=== PATIENT | male | born 1945 | race Caucasian/White ===

== ENCOUNTER 2016-05-03 04:54 | Inpatient (IN) | payer MEDICARE ==
--- NOTE | ~2016-05-03 | CR72 ---
[facility] A Service of [facility] & [facility] RADIOLOGY TEXT RESULTS PATIENT: RONNIE JIANG LOCATION: [facility] 550- : 47 UNIT #: [id number] AGE: [address]: Gerardo Gupta MD SEX: M ORDER DR: [id number] [place] [address] [id number] E MR#: [id number] Acc #: [id number] NAME: RONNIE JIANG : 1945 SEX: M STUDY DATE/TIME: 05/03/2016 5:00 UNIT: SED ROOM: STUDY DESCRIPTION: CR Chest Single View Portable Attending Physician: Jaspal Bhakta M.D. Ordering Physician: Jaspal Bhakta M.D. Primary Care Physician: Lindsey Watt A.P.R.N. MEDICAL IMAGING REPORT This report is preliminary unless electronic signature is present. EXAM Portable chest 05/03/2016 at 05:06 hours. INDICATIONS Shortness of air started today. History of COPD. TECHNIQUE AP portable chest. COMPARISON Compared with 12/23/2013. FINDINGS Cardiac and mediastinal contours are normal. The lungs are emphysematous but clear except for some chronic left base scarring. No pneumothorax. IMPRESSION Emphysema with chronic scarring at the left base. No active disease. Dictated by... Emigdio Mccarthy Jr., M.D. THIS IS AN ELECTRONICALLY VERIFIED REPORT Emigdio Mccarthy Jr., M.D. at 05/06/2016 7:21 AM RLK/rene TD: 05/03/2016 08:47 JOB #: [id number] MEDICAL IMAGING REPORT
--- NOTE | ~2016-05-03 | CR72 ---
[facility] A Service of [facility] & [facility] RADIOLOGY TEXT RESULTS PATIENT: RONNIE JIANG LOCATION: [facility] 550-01 : 47 UNIT #: [id number] AGE: [address]: Gerardo Gupta MD SEX: M ORDER DR: [id number] [facility] [address] [facility]. [place], [place] [address] [id number] I MR#: [id number] Acc #: [id number] NAME: RONNIE JIANG : 1945 SEX: M STUDY DATE/TIME: 05/03/2016 11:41 UNIT: [facility] ROOM: [facility] STUDY DESCRIPTION: CR Chest Single View Portable Attending Physician: Max Gupta M.D. Ordering Physician: Max Gupta M.D. Primary Care Physician: Rita DelgadilloRIsmael MEDICAL IMAGING REPORT This report is preliminary unless electronic signature is present EXAM Chest portable, 05/03/2016 11:41 hours HISTORY 71-year-old with chronic shortness of air worsening this morning. History of stage 4 COPD. COMPARISON 05/03/2016 at 05:06 hours FINDINGS 2 upright portable films were performed to include all of the lungs. The cardiac, mediastinal and hilar contours are normal. Lungs are hyperinflated with underlying emphysematous change and blebs and bullae in the right upper lobe greater than left. There is no acute pulmonary density or pleural effusion. IMPRESSION Diffuse emphysematous changes particularly in the right upper lobe greater than left upper lobe. There is no evidence of pneumonia, edema, effusion. Dictated by... Jacquelyn Borges M.D. THIS IS AN ELECTRONICALLY VERIFIED REPORT Jacquelyn Borges M.D. at 05/03/2016 2:30 PM Jero TD: 05/03/2016 14:23 JOB #: [id number] MEDICAL IMAGING REPORT COPY
--- NOTE | ~2016-05-03 | EKG ---
PATIENT: RONNIE JIANG UNIT #: [id number] Ventricular Rate: 71 BPM Atrial Rate: 71 BPM P-R Interval: 100 ms QRS Duration: 80 ms Q-T Interval: 368 ms QTC Calculation(Bezet): 399 ms P [place]: 85 degrees Calculated R [place]: 75 degrees Calculated T [place]: 66 degrees Diagnosis Line: Sinus rhythm with short MI Diagnosis Line: Otherwise normal ECG Diagnosis Line: When compared with ECG of 04-MAY-2016 19:34, Diagnosis Line: (unconfirmed) Diagnosis Line: Sinus rhythm has replaced Atrial flutter Diagnosis Line: Vent. rate has decreased BY 91 BPM Diagnosis Line: Non-specific change in ST segment in Inferior Diagnosis Line: leads Diagnosis Line: ST no longer depressed in Anterolateral leads Diagnosis Line: Confirmed by ALANNA TRUJILLO MD ([id number]) on Diagnosis Line: 05/05/2016 10:51:49 PM INTERPRETING MD: TERESA
--- NOTE | ~2016-05-03 | CO ---
Unit #: [id number] #: [id number] Patient: RONNIE JIANG [id number] [address] [place], [place] [address] [id number] I MR#: [id number] NAME: RONNIE JIANG ROOM: 550 Age: 71 Sex: M Admission Date: 05/03/2016 : 1945 Attending Physician: Max Gupta M.D. Primary Care Physician: Lindsey Watt A.P.R.N. CONSULTATION REPORT HISTORY OF PRESENT ILLNESS This is a 71-year-old white male who is known to have severe COPD and is on home oxygen. He is admitted with COPD exacerbation. He states he was diagnosed with pneumonia 2 weeks ago and was started on antibiotics and steroids. His dyspnea has progressively worsened. He came to the emergency room for evaluation where he was started on steroids and IV antibiotics. During the course of his stay, the patient developed atrial fibrillation with rapid ventricular response with a rate up to 176 beats per minute. The patient was unaware of palpitations. He had no symptoms of angina. He remains dyspneic that is worse than normal. He has been seen in the past by Dr. Nuñez at [facility], where he has been told to have atrial fibrillation in the past. He was treated with beta-domenico. He has not been on anticoagulation. PAST MEDICAL HISTORY 1. COPD, on home oxygen. 2. Paroxysmal atrial fibrillation, not on anticoagulation. 3. Active smoker. PAST SURGICAL HISTORY Vagotomy. SOCIAL HISTORY The patient is . He smoked up to 5 cigarettes prior to his admission, but previously smoked 1 to 1-1/2 packs of cigarettes a day. He denies illicit drug or alcohol use. FAMILY HISTORY Negative for coronary artery disease. ALLERGIES Codeine. HOME MEDICATIONS ProAir q.2 hours p.r.n., Symbicort 160/4.5 mcg 2 puffs b.i.d., and Spiriva 1 inhalation daily. According to the patient, he is taking metoprolol. REVIEW OF SYSTEMS CONSTITUTIONAL: Negative for fever or chills. Reports no weight gain or weight loss. HEENT: No headache, hearing or vision changes, or difficulty with swallowing. No dizziness. CARDIOVASCULAR: Has no symptoms of angina. Unaware of palpitations. No Unit #: [id number] #: [id number] Patient: RONNIE JIANG paroxysmal nocturnal dyspnea or orthopnea. Denies syncope or near syncope. RESPIRATORY: Positive for dyspnea at rest that is worse on minimal exertion. Has a nonproductive cough. No hemoptysis. GASTROINTESTINAL: No abdominal pain, nausea, or vomiting. No constipation or melena. EXTREMITIES: Negative for lower extremity edema. PHYSICAL EXAMINATION VITAL SIGNS: Blood pressure 144/89, heart rate 68, temperature 97.8, BMI 21. GENERAL: This is a thin, frail 71-year-old middle-aged white male, who is in mild respiratory distress. NEUROLOGIC: He is awake, alert, and oriented without focal weaknesses. NECK: Trachea is midline. No thyromegaly or lymphadenopathy. No jugular venous distention. HEART: S1 and S2. Heart sounds are normal. No murmurs. No rubs or clicks. Irregularly irregular rhythm. LUNGS: Diminished breath sounds with scattered expiratory wheezes. ABDOMEN: Soft and nontender with bowel sounds present. No hepatomegaly. EXTREMITIES: Without leg edema. SKIN: Warm and dry. DIAGNOSTIC STUDIES LABORATORY RESULTS: Glucose 146, BUN 12, creatinine 1.0, sodium 139, and potassium 4.8. BNP 37. White count 7.1, hemoglobin 16.8, hematocrit 48.9, and platelet count 149. IMAGING STUDIES: Chest x-ray shows diffuse emphysematous changes. CT of the chest shows severe pulmonary emphysema with diffuse lungs bilaterally. CARDIOVASCULAR STUDIES: EKG shows atrial fibrillation with rapid ventricular response, rate of 176 beats per minute. IMPRESSION 1. Severe chronic obstructive pulmonary disease exacerbation. 2. Acute on chronic respiratory failure secondary to chronic obstructive pulmonary disease. 3. New-onset atrial fibrillation with rapid ventricular response secondary to severe chronic obstructive pulmonary disease. PLAN 1. Cardiology was consulted for atrial fibrillation with rapid ventricular response. The patient has been started on IV amiodarone. We would add IV metoprolol for rate control. 2. Anticoagulate with Lovenox. 3. The patient has a CHADS2 score of less than 1. 4. Obtain 2D echocardiogram to evaluate left ventricular systolic function. 5. Follow up with Dr. Nuñez at discharge. Thank you for allowing us to assist in this patient's care. Dictated by... Rita GarciaRCuong. for Wayne Aguillon/cierral Unit #: [id number] #: [id number] Patient: RONNIE JIANG TD: 05/04/2016 19:11 JOB #: [id number] CC: Nick Nuñez M.D. [facility] CONSULTATION REPORT X Vineet Alfonso APRN CONSULTATION REPORT
--- NOTE | ~2016-05-03 | DS ---
Unit #: [id number] #: [id number] Patient: RONNIE JIANG [id number] [place] [address] [facility]. [place], [place] [address] [id number] I MR#: [id number] NAME: RONNIE JIANG. ROOM: 550 Age: 71 Sex: M Admission Date: 05/03/2016 : 1945 Discharge Date: 05/07/2016 Attending Physician: Max Gupta M.D. Primary Care Physician: Lindsey Watt A.P.R.N. DISCHARGE SUMMARY CONSULTANTS Dr. Carreno - Cardiology. REASON FOR ADMISSION CHF exacerbation and COPD exacerbation. This is a pleasant gentleman who has suspected pneumonia based on chest x-ray in our office approximately two days ago with five days of (1) and Medrol Dosepak. Patient did not feel better, continued to have significant shortness of air. Eventually progressed over the past few days so badly the patient presented to the emergency room for workup. He was having significant chest tightness, fatigue, cough productive of yellowish sputum. No fevers, no chills, no nausea, no vomiting, no diarrhea and no abdominal pain. The patient has a long history of COPD and has no sick contacts. CT of the chest without contrast showed emphysema with no active disease in the chest. Cardiology was called to see regarding atrial fibrillation with rapid ventricular response. The patient was started on IV amiodarone and started on IV metoprolol. The patient was anticoagulated with Lovenox. 2D echo was performed to evaluate left ventricular systolic function. The patient was placed on metoprolol. The patient is going to follow up with Dr. Nuñez on discharge. The patient was found to be flu positive, placed on Tamiflu. He was on Omnicef and azithromycin. Azithromycin was discontinued after three days. The Omnicef was changed to oral and then patient was discharged after five days of antibiotics to continue oral for a total of eight days. The patient is also being discharged on metoprolol and two more days of Tamiflu. He is requiring 3 L of oxygen. He should follow up with Dr. Vargas in approximately two weeks. DISCHARGE MEDICATIONS 1. Ventolin two puffs every four hours as needed. 2. Symbicort 160/4.5, two puffs twice a day. 3. Amiodarone 200 mg daily. 4. Prednisone 80 mg x1 days, 60 mg x1 day, 50 mg x1 day, 40 mg x1 day, 30 mg x1 day, 20 mg x1 day, 10 mg x1 day, total of 29 tablets. 5. Spiriva, one capsule inhaled daily. 6. Lovenox 60 mg subcu b.i.d. This may be changed by cardiology prior to discharge. 7. Metoprolol 25 mg daily, extended relief. 8. Omnicef 300 mg b.i.d. x2 days. 9. Tamiflu 75 mg b.i.d. x2 days. Unit #: [id number] #: [id number] Patient: RONNIE JIANG The patient is to follow up with Dr. Nuñez within two weeks. He is to follow up with Dr. Vargas within two weeks. Oxygen at 3 L nasal cannula. Dictated by... Wayne Ramos/harpal TD: 05/10/2016 07:49 JOB #: [id number] DISCHARGE SUMMARY X Gerardo Gupta MD X DISCHARGE SUMMARY
--- NOTE | ~2016-05-03 | EKG ---
PATIENT: RONNIE JIANG UNIT #: [id number] Ventricular Rate: 162 BPM Atrial Rate: 333 BPM QRS Duration: 76 ms Q-T Interval: 272 ms QTC Calculation(Bezet): 446 ms Calculated R [place]: 74 degrees Calculated T [place]: -4 degrees Diagnosis Line: Atrial flutter with variable A-V block Diagnosis Line: Nonspecific ST abnormality Diagnosis Line: Abnormal QRS-T angle, consider primary T wave Diagnosis Line: abnormality Diagnosis Line: Abnormal ECG Diagnosis Line: When compared with ECG of 04-MAY-2016 13:24, Diagnosis Line: (unconfirmed) Diagnosis Line: ST no longer depressed in Inferior leads Diagnosis Line: ST less depressed in Anterolateral leads Diagnosis Line: T wave inversion no longer evident in Inferior Diagnosis Line: leads Diagnosis Line: Nonspecific T wave abnormality no longer evident Diagnosis Line: in Lateral leads Diagnosis Line: Confirmed by ALANNA TRUJILLO MD ([id number]) on Diagnosis Line: 05/05/2016 10:48:38 PM INTERPRETING MD: TERESA
--- NOTE | ~2016-05-03 | EKG ---
PATIENT: RONNIE JIANG UNIT #: [id number] Ventricular Rate: 68 BPM Atrial Rate: 68 BPM P-R Interval: 120 ms QRS Duration: 80 ms Q-T Interval: 392 ms QTC Calculation(Bezet): 416 ms P [place]: 82 degrees Calculated R [place]: 76 degrees Calculated T [place]: 18 degrees Diagnosis Line: Normal sinus rhythm Diagnosis Line: Normal ECG Diagnosis Line: When compared with ECG of 04-MAY-2016 21:58, Diagnosis Line: No significant change was found Diagnosis Line: Confirmed by ALANNA TRUJILLO MD ([id number]) on Diagnosis Line: 05/07/2016 11:46:56 AM INTERPRETING : TERESA
--- NOTE | ~2016-05-03 | HP ---
Unit #: [id number] #: [id number] Patient: RONNIE JIANG [id number] [place] [address] [facility]. [place], [place] [address] [id number] I MR#: [id number] NAME: RONNIE JIANG ROOM: 550 Age: 71 Sex: M Admission Date: 05/03/2016 : 1945 Attending Physician: Max Gupta M.D. Primary Care Physician: Lindsey Watt A.P.R.N. HISTORY AND PHYSICAL HISTORY OF PRESENT ILLNESS This is a pleasant gentleman who was treated for what was suspected to be pneumonia based on chest x-ray in our office approximately two weeks ago with five days of levofloxacin as well as a Medrol Dosepak. Patient did not feel better and continued to have significant shortness of air. Eventually, it progressed over the past few days so badly that patient had to present to the emergency room for workup. He is having significant chest tightness, fatigue, cough productive of various whitish-yellow sputum; but no fevers, no chills, no nausea, no vomiting, no diarrhea, and no abdominal pain. The patient has COPD and has (1) . REVIEW OF SYSTEMS Negative, except as per the history of present illness. PAST MEDICAL HISTORY Significant for COPD, ventral hernia, and home oxygen 2 liters at night. PAST SURGICAL HISTORY Noncontributory. SOCIAL HISTORY Patient is a recent smoker. No alcohol. No polysubstance use. FAMILY HISTORY Noncontributory. PHYSICAL EXAMINATION VITAL SIGNS: T. current 97.9, pulse 86, respiratory rate 20, blood pressure 133/68, and satting 94% on 2 liters nasal cannula. HEENT: Extraocular movements are intact. Head is normocephalic and atraumatic. NECK: Shows no accessory muscle use. CHEST: Shows decreased breath sounds bilaterally. CARDIOVASCULAR: Regular rate. No gallop. ABDOMEN: Soft, nontender, and nondistended. EXTREMITIES: Show no evidence of edema. ASSESSMENT AND PLAN 1. COPD exacerbation. Patient is on steroids. He is on antibiotics. We are going to try to get a sputum culture and a viral respiratory panel, MRSA swab, and we hopefully will have a course and be able to deescalate antibiotics to oral here rather shortly. We are continuing steroids as patient still has wheezes on physical examination. This is likely a COPD exacerbation. Unit #: [id number] #: [id number] Patient: RONNIE JIANG 2. Weight loss. Patient states he has had 6 pounds of weight loss as well as significant weakness. Chest x-ray does not show any evidence of disease. We will get a CT chest to evaluate state of the COPD if none is done recently. Dictated by Wayne Ramos TD: 05/04/2016 06:07 JOB #: [id number] HISTORY AND PHYSICAL X Gerardo Gupta MD X HISTORY AND PHYSICAL
--- NOTE | ~2016-05-03 | EKG ---
PATIENT: RONNIE JIANG UNIT #: [id number] Ventricular Rate: 101 BPM Atrial Rate: 101 BPM P-R Interval: 122 ms QRS Duration: 80 ms Q-T Interval: 312 ms QTC Calculation(Bezet): 404 ms P [place]: 85 degrees Calculated R [place]: 76 degrees Calculated T [place]: 63 degrees Diagnosis Line: Sinus tachycardia Diagnosis Line: Biatrial enlargement Diagnosis Line: Abnormal ECG Diagnosis Line: When compared with ECG of 23-DEC-2013 07:44, Diagnosis Line: No significant change was found Diagnosis Line: Confirmed by ANASTASIA SANTIAGO MD ([id number]) on Diagnosis Line: 05/06/2016 8:21:27 AM INTERPRETING MD: PAMELA JAIN
--- NOTE | ~2016-05-03 | EKG ---
PATIENT: RONNIE JIANG UNIT #: [id number] Ventricular Rate: 176 BPM Atrial Rate: 170 BPM QRS Duration: 78 ms Q-T Interval: 248 ms QTC Calculation(Bezet): 424 ms Calculated R [place]: 79 degrees Calculated T [place]: -94 degrees Diagnosis Line: Atrial fibrillation with rapid ventricular Diagnosis Line: response Diagnosis Line: Marked ST abnormality, possible inferior Diagnosis Line: subendocardial injury Diagnosis Line: Marked ST abnormality, possible anterolateral Diagnosis Line: subendocardial injury Diagnosis Line: Abnormal ECG Diagnosis Line: When compared with ECG of 03-MAY-2016 05:09, Diagnosis Line: (unconfirmed) Diagnosis Line: Significant changes have occurred Diagnosis Line: Confirmed by ALANNA TRUJILLO MD ([id number]) on Diagnosis Line: 05/05/2016 10:44:21 PM INTERPRETING MD: TERESA
--- NOTE | ~2016-05-03 | CT57 ---
[facility] A Service of [facility] RADIOLOGY TEXT RESULTS PATIENT: RONNIE JIANG LOCATION: [facility] 550-01 : [birth year] UNIT #: [id number] AGE: [address]: Gerardo Gupta MD SEX: M ORDER DR: [id number] [place] [address] [facility]. [place], [place] [address] [id number] I MR#: [id number] #: [id number] NAME: RONNIE JIANG : 1945 SEX: M STUDY DATE/TIME: 05/04/2016 8:47 UNIT: [facility] ROOM: [facility] STUDY DESCRIPTION: CT Chest Wo Cont Attending Physician: Gerardo Gupta Ordering Physician: Gerardo Gupta Primary Care Physician: Lindsey Watt A.P.R.N. MEDICAL IMAGING REPORT This report is preliminary unless electronic signature is present EXAM CT chest, noncontrast, 05/04/2016. HISTORY 71-year-old male admitted to the hospital yesterday with shortness of air. COPD exacerbation. TECHNIQUE CT examination of the chest was performed without IV contrast. This CT exam was performed with one or more of the following radiation dose reduction techniques: automatic exposure control, adjustment of mA and/or kV according to patient size, and iterative reconstruction. FINDINGS Lung images show severe diffuse pulmonary emphysema, greatest in the upper lobes. No acute pulmonary infiltrate. No pneumothorax or pleural effusion. Heart size is normal. No pericardial effusion. No suspicious mass or adenopathy within the mediastinum. No rib fracture or other chest wall lesion. IMPRESSION 1. Severe pulmonary emphysema involving both lungs diffusely. 2. No active disease in the chest. The lungs are clear. No pulmonary infiltrate, pneumothorax or pleural effusion. Dictated by... Vincenzo Samayoa M.D. THIS IS AN ELECTRONICALLY VERIFIED REPORT Vincenzo Samayoa M.D. at 05/04/2016 3:01 PM [facility] A Service of [facility] RADIOLOGY TEXT RESULTS PATIENT: RONNIE JIANG LOCATION: [facility] 550-01 : [birth year] UNIT #: [id number] AGE: [address]: Gerardo Gupta MD SEX: M ORDER DR: Yolanda TD: 05/04/2016 13:08 JOB #: [id number] MEDICAL IMAGING REPORT COPY
[~2016-05-03 04:54] MED LIST: CEFTIN PO; LODINE XL PO; PREDNISONE10 MG PO; PRO-AIR; SPIRIVA18 MCG INH; SYMBICORT INH
[2016-05-03] MEDS ORDERED: ANTIBIOTIC (05:02)
[2016-05-03 05:18] LABS: BASOPHIL# 0.1 X10e3 (0-0.3); BASOPHIL% 0.8 % (0-2.5); EOSINOPHIL# 0.1 X10e3 (0-0.7); EOSINOPHIL% 1.3 % (0.0-7.0); HEMATOCRIT 52.4 % (38.0-50.0); HEMOGLOBIN 17.9 gm/dL (13.0-16.0); INFLUENZA A NEG (NEG); INFLUENZA B NEG (NEG); LYMPHOCYTE% 11.3 % (17.0-45.0); MEAN CELL VOLUME 92.8 FL (83-96); MEAN CORPUSCULAR HEMOGLOBIN 31.7 PG (28-34); MEAN CORPUSCULAR HGB CONC 34.1 g/dL (30-36); MEAN PLATELET VOLUME 7.7 FL (6.5-11.5); MONOCYTE# 0.9 X10e3 (0-1.0); MONOCYTE% 9.4 % (3.0-12.0); NEUTROPHIL% 77.2 % (40-75); PLATELET COUNT 170 X10e3 (140-420); RED BLOOD COUNT 5.65 X10e (3.90-5.60); WHITE BLOOD COUNT 9.1 X10e3 (4.0-10.5)
[2016-05-03 05:19] LABS: DIFF IND NO
[2016-05-03 05:22] LABS: INR 1.1; PROTHROMBIN TIME (PATIENT) 12.2 SECONDS (9.5-12.4)
[2016-05-03 05:29] LABS: PARTIAL THROMBOPLASTIN TIME 27.9 SECONDS (25.6-38.1)
[2016-05-03 05:30] LABS: BLOOD UREA NITROGEN 13 mg/dL (9-23); BUN/CREATININE RATIO 10.83; CARBON DIOXIDE 27 mmol/L (22-31); CHLORIDE 99 mmol/L (100-111); CREATININE SERUM 1.2 mg/dL (0.6-1.4); GLOM FILT RATE Estimated ABOVE60 mL/min (>60); GLUCOSE FASTING 112 mg/dL (70-110); POTASSIUM 4.2 mmol/L (3.5-5.1); SODIUM 135 mmol/L (135-145)
[2016-05-03 05:34] LABS: POC - CKMB 4.8 ng/mL (0.0-7.9); POC - TROPONIN <0.05 ng/mL (<=0.05)
[2016-05-03 05:57] LABS: ARTERIAL BLD GAS O2 SATURATION 94.8 % (90.0-100.0); ARTERIAL BLOOD GAS CARBOXY HB 3.1 %sat (0.0-9.0); ARTERIAL BLOOD GAS HCO3 24.6 mmol/L
[2016-05-03 05:59] LABS: ARTERIAL BLOOD GAS ALLEN TEST NORMAL; ARTERIAL BLOOD GAS ART SITE RIGHT RADIAL; ARTERIAL DRAW? YES
[2016-05-03] MEDS ORDERED: METOPROLOL SUCC25 MG PO (10:19)
[2016-05-03 11:55] LABS: HEMATOCRIT 48.9 % (38.0-50.0); HEMOGLOBIN 16.8 gm/dL (13.0-16.0); MEAN CELL VOLUME 92.7 FL (83-96); MEAN CORPUSCULAR HEMOGLOBIN 31.9 PG (28-34); MEAN CORPUSCULAR HGB CONC 34.4 g/dL (30-36); MEAN PLATELET VOLUME 7.6 FL (6.5-11.5); RED BLOOD COUNT 5.28 X10e (3.90-5.60); RED CELL DISTRIBUTION WIDTH 14.5 % (11.0-15.5); WHITE BLOOD COUNT 7.1 X10e3 (4.0-10.5)
[2016-05-03 12:13] LABS: ARTERIAL BLD GAS O2 SATURATION 95.8 % (90.0-100.0); ARTERIAL BLOOD GAS CARBOXY HB 1.2 %sat (0.0-9.0); ARTERIAL BLOOD GAS HCO3 24.6 mmol/L; ARTERIAL BLOOD GAS MET HB 0.4 %sat (0.0-2.0); ARTERIAL BLOOD GAS PCO2 39.6 mmHg (35.0-45.0); ARTERIAL BLOOD GAS pH 7.403 (7.350-7.450)
[2016-05-03 12:14] LABS: ARTERIAL BLOOD GAS ART SITE RIGHT BRACHIAL; ARTERIAL BLOOD GAS DELIVERY NASAL CANNULA; ARTERIAL DRAW? YES
[2016-05-03 12:24] LABS: BLOOD UREA NITROGEN 12 mg/dL (9-23); CALCIUM SERUM 8.7 mg/dL (8.4-10.2); CARBON DIOXIDE 25 mmol/L (22-31); CHLORIDE 104 mmol/L (100-111); GLOM FILT RATE Estimated ABOVE60 mL/min (>60); GLUCOSE FASTING 146 mg/dL (70-110); POTASSIUM 4.8 mmol/L (3.5-5.1); SODIUM 139 mmol/L (135-145)
[2016-05-03 14:21] LABS: PROCALCITONIN 0.05 NG/ML
[2016-05-04 11:07] LABS: ARTERIAL BLD GAS O2 SATURATION 98.4 % (90.0-100.0); ARTERIAL BLOOD GAS CARBOXY HB 0.2 %sat (0.0-9.0); ARTERIAL BLOOD GAS HCO3 24.8 mmol/L; ARTERIAL BLOOD GAS MET HB 0.5 %sat (0.0-2.0); ARTERIAL BLOOD GAS PCO2 40.6 mmHg (35.0-45.0); ARTERIAL BLOOD GAS pH 7.395 (7.350-7.450)
[2016-05-04 11:08] LABS: ARTERIAL DRAW? YES
[2016-05-04 11:09] LABS: ARTERIAL BLOOD GAS ALLEN TEST NORMAL; ARTERIAL BLOOD GAS ART SITE LEFT RADIAL; ARTERIAL BLOOD GAS DELIVERY NASAL CANNULA
[2016-05-06 07:46] LABS: HEMATOCRIT 48.2 % (38.0-50.0); HEMOGLOBIN 16.1 gm/dL (13.0-16.0); MEAN CELL VOLUME 93.5 FL (83-96); MEAN CORPUSCULAR HEMOGLOBIN 31.3 PG (28-34); MEAN CORPUSCULAR HGB CONC 33.5 g/dL (30-36); MEAN PLATELET VOLUME 8.2 FL (6.5-11.5); RED BLOOD COUNT 5.15 X10e (3.90-5.60); RED CELL DISTRIBUTION WIDTH 14.2 % (11.0-15.5)
[2016-05-06 08:33] LABS: BLOOD UREA NITROGEN 23 mg/dL (9-23); CALCIUM SERUM 9.4 mg/dL (8.4-10.2); CARBON DIOXIDE 36 mmol/L (22-31); CHLORIDE 100 mmol/L (100-111); GLOM FILT RATE Estimated ABOVE60 mL/min (>60); GLUCOSE FASTING 112 mg/dL (70-110); SODIUM 146 mmol/L (135-145)
[2016-05-06 08:40] LABS: POTASSIUM 5.8 mmol/L (3.5-5.1)
[2016-05-07 09:41] LABS: ALBUMIN SERUM 3.2 g/dL (3.5-5.0); ALKALINE PHOSPHATASE 69 U/L (32-92); ALT (SGPT) 40 U/L (10-40); AST (SGOT) 33 U/L (10-42); BILIRUBIN,TOTAL 0.7 mg/dL (0.2-2.0); BLOOD UREA NITROGEN 20 mg/dL (9-23); CALCIUM SERUM 8.7 mg/dL (8.4-10.2); CARBON DIOXIDE 34 mmol/L (22-31); CHLORIDE 101 mmol/L (100-111); CREATININE SERUM 0.8 mg/dL (0.6-1.4); GLOM FILT RATE Estimated ABOVE60 mL/min (>60); GLUCOSE FASTING 119 mg/dL (70-110); MAGNESIUM 2.1 mg/dL (1.6-3.0); PHOSPHOROUS 2.9 mg/dL (2.5-4.6); POTASSIUM 3.8 mmol/L (3.5-5.1); PROTEIN TOTAL SERUM 6.2 g/dL (6.0-8.3); SODIUM 143 mmol/L (135-145)
[2016-05-07] MEDS ORDERED: TAMIFLU75 M1 PO (18:55)
[2016-05-07] MEDS ORDERED: OMNICEF300 MG PO (18:57)
[2016-05-07] MEDS ORDERED: ENOXAPARIN60 MG/0.6 SUBQ (18:59)
[2016-05-07] MEDS ORDERED: AMIODARONE PO (19:00)
[2016-05-07] MEDS ORDERED: PREDNISONE10 MG PO (19:03)
== END 2016-05-07 21:00 | disposition home or self-care (01) | DRG 189 ==
LOC: SED 04:54 → C5B 11:05
PROVIDERS: Emergency Medicine; Internal Medicine Pulmonary Disease
PROC: B24BYZZ Ultrasonography of Heart with Aorta using Other Contrast (ICD-10-PCS; principal; 2016-05-05)
DX: J96.21 Acute and chronic respiratory failure with hypoxia (principal); E87.0 Hyperosmolality and hypernatremia; Z99.81 Dependence on supplemental oxygen; I48.0 Paroxysmal atrial fibrillation; J44.1 Chronic obstructive pulmonary disease with (acute) exacerbation; R63.4 Abnormal weight loss; F17.210 Nicotine dependence, cigarettes, uncomplicated; I07.1 Rheumatic tricuspid insufficiency; E87.5 Hyperkalemia
CPT/HCPCS: 36415; 36600; 71010; 71250; 80048; 80053; 80162; 82308; 82553; 82803; 83605; 83735; 83874; 83880; 84100; 84484; 85025; 85027; 85610; 85730; 87040; 87070; 87633; 87804; 93005; 93306; 94640; 94664; 94760; 96374; 99291; G0424; J0282; J0456; J0696; J1160; J1650; J2930; J3490